=== PATIENT | male | born 1980 | race Native Hawaiian/Other Pacific Islander ===

== ENCOUNTER 2019-06-05 05:38 | Day surgery (SDC) | payer BC ==
[2019-05-29 15:34] VITALS: BMI 28.8
--- NOTE | 2019-06-05 09:15 | HP ---
[facility] - Chief Complaint Chief Complaint: left knee pain - Past Medical History Allergies/Adverse Reactions: Allergies Allergy/AdvReac Type Severity Reaction Status Date / Time bacitracin Allergy Verified 05/04/16 09:22 [From Neosporin ([id number])] bacitracin zinc Allergy Verified 05/04/16 09:22 [From Neosporin (klh-kit-doyae)] neomycin sulfate Allergy Verified 05/04/16 09:22 [From Neosporin (lvy-ilt-woale)] polymyxin B Allergy Verified 05/04/16 09:22 [From Neosporin ([id number]-[id number])] - Current Medications Current Medications: Home Medications Medication Instructions Recorded Fexofenadine/Pseudoephedrine 1 each PO PRN PRN 04/29/16 [Mary Jo-D 24 Hour Tablet] Ascorbate Calcium [Vitamin C] 500 mg PO DAILY 05/29/19 Oxycodone HCl/Acetaminophen 1 tab PO Q6H #10 tablet MDD 4 06/05/19 [Percocet 5-325 mg Tablet] [facility] Physical Exam - Physical Examination General Appearance: Well Nourished, Well Developed, Alert & Oriented x3 ENT: Clear Lung: Normal air movement Heart: Regular rate & rhythm Extremities: Other (left knee-well healed portal sites, +swelling, + ttp, decr rom, nvi) Neurological: Intact, Alert, Oriented [facility] Impression/Plan - Impression/Plan Impression: left knee internal derangement Operative Procedure: left knee arthroscopy Date to be Performed: 06/05/19
[2019-06-05] MEDS ORDERED: PROPOFOL 20 ML ONE (09:46)
[2019-06-05] MEDS ORDERED: MIDAZOLAM HCL 2 MG/2 ML SINGLE DOSE VIAL ONE (09:46)
[2019-06-05] MEDS ORDERED: LIDOCAINE HCL/PF 2% SDV 5ML VIAL ONE (09:47)
[2019-06-05] MEDS ORDERED: BUPIVACAINE HCL/PF 0.5% (5 MG/ML) 30 ML VIAL IJ ONE (10:06)
[2019-06-05] MEDS ORDERED: LIDOCAINE HCL 1% EPINEPHRINE 1:200,000 30 ML VIAL (PF) ONE (10:06)
[2019-06-05] MEDS ORDERED: ceFAZolin SODIUM 1 GM VIAL ONE (10:30)
[2019-06-05] MEDS ORDERED: DEXAMETHASONE SOD PHOSPHATE 4 MG/1 ML VIAL ONE (10:37)
--- NOTE | 2019-06-05 10:55 | OP ---
Operative Note - Note: Operative Date: 06/05/19 ([facility]) Pre-Operative Diagnosis: left knee internal derangement Operation: left knee arthroscopy with PMM Post-Operative Diagnosis: Same as Pre-op Surgeon: Angel Brunner Anesthesiologist/[employer]: Shayy Arriaza Anesthesia: General, Local Specimens Removed: shavings Estimated Blood Loss (mls): 5
[2019-06-05] MEDS ORDERED: IBUPROFEN 600 MG TABLET (FP) PO ONE (12:28)
[2019-06-05] MEDS ORDERED: oxyCODONE HCL 5 MG TABLET PO PRN (12:34)
[2019-06-05] MEDS ORDERED: ONDANSETRON 4 MG/2 ML VIAL IVPUSH PRN (12:34)
[2019-06-05] MEDS ORDERED: LACTATED RINGERS SOLUTION 1,000 ML IV SCH (12:45)
[2019-06-05 14:10] VITALS: BP 103/69; PULSE 56; TEMP 97.8
--- NOTE | 2019-06-07 14:54 | PATH ---
Surgical Pathology Report Patient Name: BISI MEJIA Med. Rec. #: [id number] /Age/Gender: 1980 (Age: 38) / M Account: [id number] Location: [facility] SURGICAL Taken: 06/05/2019 Received: 06/05/2019 Reported: 06/07/2019 Physicians: Angel Brunner M.D. Specimen(s) Received LEFT KNEE SHAVINGS Clinical History Left knee internal derangement Final Diagnosis LEFT KNEE SHAVINGS: FRAGMENTS OF SYNOVIAL AND FIBROCARTILAGINOUS TISSUE WITH FOCAL FIBROSIS AND DEGENERATIVE CHANGE. Electronically Signed Emily Escamilla M.D. Gross Description Received in formalin, labeled "left knee shavings," is a 3.3 x 2.0 x 0.3 cm. aggregate of al-yellow soft tissue fragments. A telesales representative portion is submitted in one cassette. DL/06/05/2019 saudi/06/05/2019
--- NOTE | 2019-06-10 15:54 | OP ---
DATE OF OPERATION: 06/05/2019 PREOPERATIVE DIAGNOSIS: Left medial meniscus tear. POSTOPERATIVE DIAGNOSIS: Left medial meniscus tear. PROCEDURE: Arthroscopy of the left knee, partial medial meniscectomy. SURGICAL ATTENDING: Angel Brunner MD ANESTHESIA: General with LMA. CLOSURE: Nylon 4-0. COMPLICATIONS: None. CONDITION: To the recovery room in stable condition. INDICATIONS FOR OPERATIVE PROCEDURE: Patient is a 38-year-old male 3 years status post left anterior cruciate ligament tear and complaining of increased pain in his left knee. His MRI showed a medial meniscus tear. Under anesthesia now patient had a negative pivot shift and in the office he also did not exhibit any signs of instability of his ACL, just problems with his medial meniscus as shown by the MRI. DESCRIPTION OF OPERATIVE PROCEDURE: Patient was taken to the operating room on June 05, 2019. General anesthesia with LMA was administered by the anesthesiologist. IV Kefzol was administered prophylactically prior to the case. Exam again under anesthesia showed a negative pivot shift, negative anterior and posterior drawer and negative Matilde exam. The medial and lateral infrapatellar portals utilizing in the previous made portals from the prior operation were made with a 15 blade, followed by blunt trocar. The scope was placed in the lateral infrapatellar portal and up into the suprapatellar pouch. The knee was inflated with a cocktail of 10 mL of 1% Xylocaine, 10 mL of 0.5% Marcaine, and 20 mL of arthroscopic saline. After allowing the anesthetic to sit for a few minutes in the knee, the procedure was performed. The pouch was visualized to be clean. The medial and lateral gutters were visualized to be clean. The undersurface of the patella and trochlea were visualized to be intact. With valgus stress on the knee the medial compartment was entered. The medial meniscus was found to have a displaced split bucket-handle tear. This was debrided back to smooth stable meniscal tissues using a meniscal biter and arthroscopic shaver. The medial femoral condyle was run and found to be intact, as was the medial tibial plateau. At 90 degrees, the ACL was visualized, probed, and found to be intact, taking up good tension and excellent trajectory of the graft. In the figure-4 position, the lateral compartment was entered. The lateral meniscus was visualized, probed, and found to be intact. The lateral femoral condyle was probed and found to be intact, as was the lateral tibial plateau. The knee was irrigated with copious amounts of irrigation. The portals were closed using 4-0 nylon. Prior to closure 20 mL of 0.5% Marcaine was infused through the outflow cannula. A sterile pressure dressing was placed on the knee. Patient awakened from anesthesia and transferred to the recovery room in stable condition. No complication. Estimated blood loss negligible. Torres FREITAS/[id number]
== END 2019-06-05 12:30 | disposition home or self-care (01) ==
LOC: JASU-SURG 05:38
PROVIDERS: ATTEND Orthopaedic Surgery
PROC: 0SBD4ZZ Excision of Left Knee Joint, Percutaneous Endoscopic Approach (ICD-10-PCS; principal; 2019-06-05 10:15)
DX: S83.212A Bucket-handle tear of medial meniscus, current injury, left knee, initial encounter (principal); X58.XXXA Exposure to other specified factors, initial encounter; Y93.9 Activity, unspecified; Y92.9 Unspecified place or not applicable
CPT/HCPCS: 88304-TC; 94760